=== PATIENT | female | born 1995 | race Caucasian/White ===

== ENCOUNTER 2017-02-11 15:37 | Emergency (ER) | payer BC ==
--- NOTE | ~2017-02-11 | CT2 ---
[facility] A Service of [facility] RADIOLOGY TEXT RESULTS PATIENT: FIDELIA HERNANDEZ LOCATION: SED : [birth year] UNIT #: [id number] AGE: [address]: Vianca Shaver SEX: F ORDER DR: [id number] [address] [id number] E MR#: [id number] #: [id number] NAME: FIDELIA HERNANDEZ : 1995 SEX: F STUDY DATE/TIME: 02/11/2017 17:32 UNIT: SED ROOM: STUDY DESCRIPTION: CT Abd and Pelv W Cont Attending Physician: Vianca Shaver Pa-C Ordering Physician: Vianca Shaver Pa-C Primary Care Physician: Mey Bazzi Aprn MEDICAL IMAGING REPORT This report is preliminary unless electronic signature is present. EXAM CT scan of the abdomen and pelvis with contrast 02/11/2017 HISTORY Abdomen pain, pain in lower abdomen beginning last night. No known injury. TECHNIQUE Spiral CT was performed through the abdomen and pelvis following intravenous contrast administration only as per clinician request. This CT exam was performed with one or more of the following radiation dose reduction techniques: automatic exposure control, adjustment of mA and/or kV according to patient size, and iterative reconstruction. FINDINGS Abdomen: Exam is limited by the lack of oral contrast. The liver, spleen, pancreas, gallbladder and biliary tree, adrenal glands and kidneys are normal. Pelvis findings: The gut, mesenteric and trent structures are normal. There is a 3.7 cm x 2.3 cm cystic lesion on the right ovary containing a septation. There is also some minimal free fluid in the adjacent right adnexal region. Findings may reflect a recently ruptured ovarian cyst. Correlation with clinical findings is recommended. This finding would be better evaluated with pelvic ultrasound if clinically indicated. The lung bases are normal. IMPRESSION 1. Examination is limited by the lack of oral contrast. 2. 3.7 cm x 2.3 cm cystic lesion containing a septation on the right ovary. There is also some minimal free fluid in the right adnexal region. Findings may reflect a recently ruptured ovarian cyst. Clinical correlation is recommended. This finding would be better evaluated with pelvic ultrasound if clinically indicated. [facility] A Service of [facility] RADIOLOGY TEXT RESULTS PATIENT: FIDELIA HERNANDEZ LOCATION: SED : [birth year] UNIT #: [id number] AGE: [address]: Vianca Shaver SEX: F ORDER DR: Dictated by... Jose Feliciano M.D. THIS IS AN ELECTRONICALLY VERIFIED REPORT Jose Feliciano M.D. at 02/12/2017 8:40 AM KRT/to TD: 02/11/2017 21:41 JOB #: [id number] MEDICAL IMAGING REPORT Page 1 of 1
[~2017-02-11 15:37] MED LIST: KEFLEX PO; NO MEDICATIONS
[2017-02-11 16:07] LABS: URINE SOURCE CLEAN CATCH
[2017-02-11 16:10] LABS: MICRO INDICATED? YES; URINE APPEARANCE CLEAR; URINE BILIRUBIN NEG (NEG); URINE BLOOD TRACE-INTACT (NEG); URINE COLOR YELLOW; URINE GLUCOSE NEG (NORM); URINE KETONE NEG (NEG); URINE LEUKOCYTE ESTERASE TRACE (NEG); URINE NITRATE NEG (NEG); URINE PROTEIN NEG (NEG); URINE UROBILINOGEN 0.2 MG/DL (NORM)
[2017-02-11 16:22] LABS: CULTURE INDICATED? NO; URINE BACTERIA NEG (NEG); URINE RBC 0-2 /[HPF] (0-2); URINE WBC 0-2 /[HPF] (0-5)
[2017-02-11 16:35] LABS: BASOPHIL% 0.4 % (0-2.5); EOSINOPHIL# 0.1 X10e3 (0-0.7); EOSINOPHIL% 1.7 % (0.0-7.0); HEMATOCRIT 37.5 % (35.0-45.0); HEMOGLOBIN 12.7 gm/dL (12.0-16.0); LYMPHOCYTE% 17.7 % (17.0-45.0); MEAN CORPUSCULAR HEMOGLOBIN 29.9 PG (28-34); MEAN CORPUSCULAR HGB CONC 33.9 g/dL (30-36); MEAN PLATELET VOLUME 9.2 FL (6.5-11.5); MONOCYTE# 0.4 X10e3 (0-1.0); MONOCYTE% 6.8 % (3.0-12.0); NEUTROPHIL# 3.9 X10e3 (1.5-7.1); NEUTROPHIL% 73.4 % (40-75); PLATELET COUNT 231 X10e3 (140-420); RED BLOOD COUNT 4.25 X10e (3.90-5.30); RED CELL DISTRIBUTION WIDTH 13.3 % (11.0-15.5); WHITE BLOOD COUNT 5.4 X10e3 (4.0-10.5)
[2017-02-11 16:36] LABS: DIFF IND NO
[2017-02-11 17:20] LABS: ALBUMIN SERUM 4.4 g/dL (3.5-5.0); BILIRUBIN,TOTAL 0.6 mg/dL (0.2-2.0); BUN/CREATININE RATIO 16.66; CREATININE SERUM 0.6 mg/dL (0.6-1.4); GLOM FILT RATE Estimated 132.1 mL/min (>60); PROTEIN TOTAL SERUM 7.5 g/dL (6.0-8.3)
== END 2017-02-11 18:46 | disposition home or self-care (01) ==
LOC: SED 15:37
PROVIDERS: Emergency Medicine; Physician Assistant
DX: N83.201 Unspecified ovarian cyst, right side (principal)
CPT/HCPCS: 36415; 74177; 80053; 81003; 83690; 84703; 85025; 96374; 99284; J2405; Q9967